=== PATIENT | female | born 1945 | race Caucasian/White ===

== ENCOUNTER 2023-01-13 17:49 | Emergency (ER) | payer MEDICARE, OTHER ==
[2023-01-13] MEDS ORDERED: SODIUM CHLORIDE 0.9% 1,000 ML IV STA ×2 (18:09→18:59)
--- NOTE | 2023-01-13 18:10 | ED Physician Documentation ---
History of Present Illness - Stated complaint Stated Complaint: LOW BP - Chief complaint Chief Complaint: General - History obtained from History obtained from: Patient - Additonal information Additional information: She has a history of chronic rheumatoid arthritis on methotrexate, hypertension and pedal edema on a diuretic. She developed symptomatic COVID 5 days ago and has not been eating or drinking well. Today she has been feeling off and checked her blood pressure and it was in the range of 90/60 and was advised to come to the emergency department. She denies vomiting, has had some nausea. No diarrhea. No shortness of breath. She does feel quite fatigued which at least partially is a chronic problem. PD PAST MEDICAL HISTORY - Allergies Allergies/Adverse Reactions: Allergies Allergy/AdvReac Type Severity Reaction Status Date / Time atenolol [From Tenormin] Allergy Unknown Verified 01/13/23 18:05 celecoxib Allergy Unknown Verified 01/13/23 18:05 naproxen Allergy Rash Verified 01/13/23 18:05 Sulfa (Sulfonamide Allergy Hives Verified 01/13/23 18:06 Antibiotics) PD ED PE NORMAL - Vitals Vital signs reviewed: Yes - General General: Alert and oriented X 3, No acute distress - Cardiac Cardiac: RRR, No murmur - Respiratory Respiratory: No respiratory distress, Clear bilaterally - Abdomen Abdomen: Non tender - Derm Derm: Normal color, Warm and dry - Extremities Extremities: Other (1+ pitting pedal edema, symmetric) - Neuro Neuro: Alert and oriented X 3, Normal speech Results - Vitals Vitals: Vital Signs - 24 hr 01/13/23 01/13/23 18:01 18:08 Temperature 36.7 C Heart Rate 79 Respiratory 15 15 Rate Blood Pressure 119/72 119/62 O2 Saturation 96 98 Oxygen O2 Source Room air - Labs Labs: Laboratory Tests 01/13/23 01/13/23 18:04 18:04 WBC 4.2 L RBC 4.90 Hgb 15.4 Hct 46.4 MCV 94.7 MCH 31.4 H MCHC 33.2 RDW 13.2 Plt Count 109 L MPV 12.7 H Neut # (Auto) 2.4 Lymph # (Auto) 1.2 L [place] # (Auto) 0.5 Eos # (Auto) 0.1 Baso # (Auto) 0.0 Absolute Nucleated RBC 0.00 Nucleated RBC % 0.0 Sodium 133 L Potassium 3.5 Chloride 93 L Carbon Dioxide 29 Anion Gap 11.0 BUN 24 H Creatinine 1.6 H Estimated GFR (MDRD) 31 L Glucose 292 H Calcium 9.3 Magnesium 2.1 PD Medical Decision Making - ED course ED course: 77-year-old woman with symptomatic COVID had low blood pressures at home likely related to symptomatic dehydration. CBC shows expected lymphopenia. BMP shows prerenal azotemia and hyperglycemia consistent with dehydration. She was given IV fluids and magnesium here and feeling much better and eager for discharge. Departure - Departure Disposition: Home, Self Care Clinical Impression: Dehydration, COVID-19 Condition: Good Record reviewed to determine appropriate education?: Yes Instructions: ED Dehydration, ED Viral Syndrome Comments: You were seen today for dehydration related to symptomatic COVID. Is much as possible try to drink plenty of fluids. You should hold your torsemide which is a diuretic/water pill until taking normal oral intake. Hold your losartan tonight, you can restart it when your blood pressures are back up in the hypertensive range. Return if worse. Forms: PCP List
[2023-01-13 18:15] LABS: EOSINOPHILS # (AUTO) 0.1 10^3/uL (0.0-0.7); EOSINOPHILS % (AUTO) 1.7 %; HCT - HEMATOCRIT 46.4 % (37.0-47.0); HGB - HEMOGLOBIN 15.4 g/dL (12.0-16.0); LYMPHOCYTES # (AUTO) 1.2 10^3/uL (1.5-3.5); LYMPHOCYTES % (AUTO) 29.8 %; MEAN CORPUSCULAR HEMOGLOBIN 31.4 pg (27.0-31.0); MEAN CORPUSCULAR HGB CONC 33.2 g/dL (32.0-36.0); MEAN CORPUSCULAR VOLUME 94.7 fL (81.0-99.0); MEAN PLATELET VOLUME 12.7 fL (7.9-10.8); MONOCYTES # (AUTO) 0.5 10^3/uL (0.0-1.0); MONOCYTES % (AUTO) 10.8 %; NEUTROPHILS # (AUTO) 2.4 10^3/uL (1.5-6.6); NEUTROPHILS % (AUTO) 56.5 %; PLT - PLATELET COUNT 109 10^3/uL (130-450); RED CELL DISTRIBUTION WIDTH 13.2 % (12.0-15.0); WHITE BLOOD COUNT 4.2 x10^3/uL (4.8-10.8)
[2023-01-13 18:56] LABS: CALCIUM 9.3 mg/dL (8.5-10.3); CREATININE 1.6 mg/dL (0.6-1.3); POTASSIUM 3.5 mmol/L (3.5-4.5)
[2023-01-13] MEDS ORDERED: MAGNESIUM SULFATE 2 GRAM 2 GM/50 ML BAG IV ONE (19:01)
[2023-01-13 19:10] LABS: MAGNESIUM 2.1 mg/dL (1.7-2.8)
[2023-01-13 20:50] VITALS: BP 132/71; O2SAT 97
== END 2023-01-13 20:45 | disposition home or self-care (01) ==
LOC: ED 17:49
DX: U07.1 COVID-19 (principal); E86.0 Dehydration
CPT/HCPCS: 36415; 80048; 83735; 85025; 96361; 96365; 99283

== ENCOUNTER 2023-01-19 18:56 | Outpatient (CLI) | payer MEDICARE, OTHER | END 2023-01-19 23:59 | disposition EMS.NT | LOC: EMS 18:56 | DX: R53.1 Weakness (principal) ==